=== PATIENT | male | born 1980 | race Caucasian/White ===

== ENCOUNTER 2023-11-29 00:20 | Emergency (ER) | payer BC ==
[~2023-11-29] VITALS: Ht 190.5 cm; Wt 92.3 kg
[2023-11-29 01:08] LABS: BASOPHILS # (AUTO) 0.1 X10'3 (0-0.2); BASOPHILS % (AUTO) 0.6 % (0-1); EOSINOPHILS # (AUTO) 0.1 X10'3 (0-0.9); EOSINOPHILS % (AUTO) 0.6 % (0-6); HEMATOCRIT 42.7 % (42.0-52.0); HEMOGLOBIN 14.8 g/dl (14.0-17.9); LYMPHOCYTES # (AUTO) 1.1 X10'3 (1.1-4.8); LYMPHOCYTES % (AUTO) 9.6 % (21-51); MEAN CORPUSCULAR HGB CONC 34.7 g/dL (33.0-36.5); MEAN CORPUSCULAR VOLUME 89.3 FL (78-98); MONOCYTES # (AUTO) 0.8 X10'3 (0-0.9); MONOCYTES % (AUTO) 7.1 % (2-12); NEUTROPHILS # (AUTO) 9.2 X10'3 (1.8-7.7); NEUTROPHILS % (AUTO) 82.1 % (42-75); PLATELET COUNT 259 X10'3 (140-440); RED BLOOD COUNT 4.78 X10'6 (4.70-6.10); RED CELL DISTRIBUTION WIDTH 12.7 % (11.5-14.5); WHITE BLOOD COUNT 11.3 X10'3 (4.5-11.0)
[2023-11-29 01:27] LABS: ALBUMIN 4.1 G/DL (3.4-5.0); ANION GAP 18 (8-16); BLOOD UREA NITROGEN 18 MG/DL (7-18); BUN/CREATININE RATIO 9.7 (10.0-20.0); CALCIUM 9.1 MG/DL (8.5-10.1); CHLORIDE 100 MMOL/L (99-107); CREATININE 1.86 MG/DL (0.60-1.10); GLUCOSE 137 MG/DL (70-104); POTASSIUM 3.1 MMOL/L (3.5-5.1); PRO BRAIN NATRIURETIC PEPTIDE < 30 PG/ML (0-125); SODIUM 137 MMOL/L (135-145); TOTAL CARBON DIOXIDE 18.6 MMOL/L (24-32); eCRCL 62 ML/MIN; eGFR 40 ML/MIN
[2023-11-29] MEDS: morphine 4 MG/ML inj SYRINge IV ONE (01:30)
[2023-11-29] MEDS: ketorolac trometh 15mg/ml vial 15 MG/ML ML IV ONE (01:35)
[2023-11-29] MEDS: ondansetron/PF 4mg/2ml inj IV ONE (01:35)
[2023-11-29] MEDS: normal saline 1000ML IV soln IVB ONE (01:36)
[2023-11-29 02:52] LABS: BILIRUBIN,URINE NEGATIVE (Neg); CLARITY,URINE CLOUDY (Clear); COLOR,URINE YELLOW (Yellow); GLUCOSE, URINE NEGATIVE (Neg); KETONES,URINE 40 mg/dl (Neg); LEUKOCYTE ESTERASE ,URINE LARGE (Neg); NITRITES, URINE POSITIVE (Neg); OCCULT BLOOD,URINE SMALL (Neg); PH,URINE 7.5 (4.8-8.0); PROTEIN,URINE TRACE mg/dl (Neg); UROBILINOGEN,URINE 0.2 E.U/dL (0.2-1.0)
[2023-11-29 02:57] LABS: UA COLLECTION TYPE URINAL
[2023-11-29 03:00] LABS: BACTERIA,URINE 4+ /HPF (Neg); MUCUS STRANDS FEW /LPF (Neg); SQUAMOUS EPITHELIAL CELL,UR NONE SEEN /LPF (FEW); WBC CLUMPS,URINE FEW /HPF (NEGATIVE); WBC,URINE TNTC /HPF (0-4)
[2023-11-29 03:12] LABS: URINE AMPHETAMINE SCREEN POSITIVE (Neg); URINE BARBITUATE SCREEN NEGATIVE (Neg); URINE BENZODIAZEPINES SCREEN NEGATIVE (Neg); URINE CANNABINOID SCREEN NEGATIVE (Neg); URINE COCAINE SCREEN NEGATIVE (Neg); URINE METHADONE SCREEN NEGATIVE (Neg); URINE OPIATE SCREEN NEGATIVE (Neg); URINE PHENCYCLIDINE SCREEN NEGATIVE (Neg)
[2023-11-29] MEDS ORDERED: CEPH-585 PO (03:17)
[2023-11-29] MEDS: CefTRIAXone 2gm/D5W 50ml BAG 50 ML IV ONE (03:28)
[2023-11-29] MEDS: potassium Cl 20 mEq SR tablet PO STA (03:44)
[2023-11-29] MEDS: acetaminophen 325mg tablet PO ONE (03:45)
[2023-11-29 04:20] VITALS: BP 125/101; PULSE 97; RESP 14; TEMP 98; O2SAT 99
== END 2023-11-29 04:27 | disposition home or self-care (01) ==
LOC: ER 00:21
DX: N20.0 Calculus of kidney (principal); N39.0 Urinary tract infection, site not specified; R10.9 Unspecified abdominal pain; Z79.2 Long term (current) use of antibiotics
CPT/HCPCS: 36415; 71045; 74176; 80048; 80305; 81001; 83880; 84484; 85025; 93005; 96361; 96365; 96375; 99285; J0696; J1885; J2405; J7030; J2270

== ENCOUNTER 2024-02-25 23:12 | Emergency (ER) | payer BC ==
[~2024-02-25] VITALS: Ht 188 cm; Wt 90.6 kg
[2024-02-25 23:27] VITALS: BP 131/90; PULSE 97; RESP 16; TEMP 98.6; O2SAT 98
== END 2024-02-26 00:42 | disposition home or self-care (01) ==
LOC: ER 23:13
DX: S00.83XA Contusion of other part of head, initial encounter (principal); S10.93XA Contusion of unspecified part of neck, initial encounter; Y08.89XA Assault by other specified means, initial encounter; Y93.89 Activity, other specified; Y92.89 Other specified places as the place of occurrence of the external cause; Y99.8 Other external cause status
CPT/HCPCS: 70360; 99283